=== PATIENT | female | born 1940 | race Caucasian/White ===

== ENCOUNTER 2018-02-08 17:28 | Emergency (ER) | payer MEDICAID ==
[~2018-02-08] VITALS: Ht 154.9 cm; Wt 75.0 kg
[~2018-02-08 17:28] MED LIST: ACET-2178 PO; ALEN70TA46 PO; AMLO10TA80 PO; ASPI-1159 PO; CEPH-569 PO; FURO-151 PO; HYDR25TA PO; IBUP-2030 PO; LOPE2TAB26 PO; LOSA100T14 PO; METF10002 PO; METO25TA6 PO; MULT-1146 PO; OCD MT; SIMV20TA6 PO
[2018-02-08 20:17] LABS: BASOPHILS % 0.5 % (0.0-2.0); EOSINOPHILS % 0.8 % (0.0-5.0); HEMATOCRIT. 32.3 % (36.0-48.0); HEMOGLOBIN. 10.8 g/dL (12.0-16.0); LYMPHOCYTES % 23.3 % (20.0-50.0); MEAN CORPUSCULAR HEMOGLOBIN 29.8 pg (28.0-32.0); MEAN CORPUSCULAR VOLUME 89.1 fL (81.0-99.0); MONOCYTES % 8.5 % (2.0-8.0); NEUTROPHILS % 66.9 % (40.0-76.0); PLATELET 225 x1000/uL (130-400); RED BLOOD CELL COUNT 3.62 mill/uL (4.2-5.4); RED CELL DISTRIBUTION WIDTH 13.9 % (11.6-14.6)
[2018-02-08 20:19] LABS: CHLORIDE 97 mEq/L (98-107)
[2018-02-08 20:21] LABS: PROTHROMBIN TIME 10.9 sec (9.4-11.6)
[2018-02-08] MEDS ORDERED: DIATR MEGLU/DIATRIZOATE SOLN 30ML ONE (20:58)
[2018-02-08 21:25] LABS: CLARITY URINE CLOUDY (CLEAR); COLOR URINE YELLOW (YELLOW); KETONES URINE NEGATIVE (NEGATIVE); LEUKOCYTE ESTERASE URINE 3+ (NEGATIVE); NITRITE URINE POSITIVE (NEGATIVE); OCCULT BLOOD URINE 1+ (NEGATIVE); PROTEIN URINE NEGATIVE (NEGATIVE); UROBILINOGEN URINE 0.2 E.U./dL (0.2-1.0)
[2018-02-09] MEDS ORDERED: CEFTRIAXONE 1 G PREMIX 50 ML IV NR (00:45)
[2018-02-09 05:54] VITALS: BP 138/66
[2018-02-09] MEDS ORDERED: IOHEXOL-300 100 ML BOTTLE ONE (06:59)
== END 2018-02-09 06:35 | disposition home or self-care (01) ==
LOC: ER 17:41
DX: N39.0 Urinary tract infection, site not specified (principal); K59.00 Constipation, unspecified; R11.2 Nausea with vomiting, unspecified; I50.9 Heart failure, unspecified; I11.0 Hypertensive heart disease with heart failure; E11.9 Type 2 diabetes mellitus without complications; I25.10 Atherosclerotic heart disease of native coronary artery without angina pectoris; E78.5 Hyperlipidemia, unspecified; K42.9 Umbilical hernia without obstruction or gangrene; Z89.511 Acquired absence of right leg below knee; Z95.1 Presence of aortocoronary bypass graft; Z79.82 Long term (current) use of aspirin; Z79.899 Other long term (current) drug therapy
CPT/HCPCS: 36415; 74177; 80053; 81003; 82962; 83690; 85025; 85610; 87077; 87086; 87186; 96365; 96366; 99285; J0696; Q9967; Z7610; Q9963

== ENCOUNTER 2019-02-22 18:45 | Inpatient (IN) | payer MEDICAID ==
[~2019-02-22] VITALS: Ht 152.4 cm; Wt 98.4 kg
[~2019-02-22 18:45] MED LIST changes: +METF-416 PO; -METF10002 PO; -OCD MT; +OCD PO; -SIMV20TA6 PO
[2019-02-22 20:06] LABS: HEMATOCRIT. 29.4 % (36.0-48.0); HEMOGLOBIN. 9.6 g/dL (12.0-16.0); MEAN CORPUSCULAR HEMOGLOBIN 30.1 pg (28.0-32.0); MEAN CORPUSCULAR VOLUME 92.6 fL (81.0-99.0); PLATELET 266 x1000/uL (130-400); RED BLOOD CELL COUNT 3.17 mill/uL (4.2-5.4); RED CELL DISTRIBUTION WIDTH 14.6 % (11.6-14.6)
[2019-02-22 20:11] LABS: CHLORIDE 95 mEq/L (98-107)
[2019-02-22] MEDS ORDERED: DEXTROSE 50% WATER 50ML SYRINGE IV ONE ×4 (20:14→23:00)
[2019-02-22 20:17] LABS: PROTHROMBIN TIME 10.4 sec (9.1-11.1)
[2019-02-22 20:28] LABS: PLATELET ESTIMATE NORMAL
[2019-02-22] MEDS ORDERED: DEXT 10% WATER 1,000 ML IV ONE (22:30)
[2019-02-22] MEDS ORDERED: FENTANYL CITRATE/PF 50MCG/ML 2ML VIAL IV ONE (23:00)
[2019-02-23 04:47] LABS: CLARITY URINE TURBID (CLEAR); COLOR URINE YELLOW (YELLOW); KETONES URINE NEGATIVE (NEGATIVE); LEUKOCYTE ESTERASE URINE 3+ (NEGATIVE); NITRITE URINE POSITIVE (NEGATIVE); OCCULT BLOOD URINE 3+ (NEGATIVE); PH URINE 5.5 (4.5-8.0); PROTEIN URINE TRACE (NEGATIVE); SPECIFIC GRAVITY URINE 1.009 (1.005-1.030); UROBILINOGEN URINE 0.2 E.U./dL (0.2-1.0)
[2019-02-23] MEDS ORDERED: MORPHINE SULFATE 4 MG/ML CPJ (NOT FOR IM USE) IV PRN (08:30)
[2019-02-23 11:00] VITALS: BP 115/47
[2019-02-23 11:10] VITALS: BP 115/47
[2019-02-23] MEDS ORDERED: CEFTRIAXONE 1 G PREMIX 50 ML IV SCH (12:00)
[2019-02-23] MEDS ORDERED: DEXTROSE 10% WATER 500 ML IV SCH (12:00)
[2019-02-23] MEDS ORDERED: ONDANSETRON HCL 4MG/2ML INJ IV PRN (12:00)
[2019-02-23] MEDS: CEFTRIAXONE 1 G PREMIX 50 ML IV SCH (15:13)
[2019-02-23 16:00] VITALS: BP 121/34
[2019-02-23] MEDS: DEXT 10% WATER 1,000 ML IV SCH (16:04)
[2019-02-23] MEDS: ACETAMINOPHEN WITH CODEINE 300/30MG TABLET PO PRN ×2 (16:20→21:27)
[2019-02-23] MEDS ORDERED: ENOXAPARIN 40MG/0.4ML SYR SUBCUT SCH (17:00)
[2019-02-23] MEDS: FUROSEMIDE 40MG/4ML VIAL IVP SCH (18:00)
[2019-02-23] MEDS ORDERED: DEXTROSE 50% WATER 50ML SYRINGE IV PRN (19:45)
[2019-02-23 20:00] VITALS: BP 128/42
[2019-02-23] MEDS: INSULIN LISPRO 100 UNITS/ML SUBCUT SCH (21:00)
[2019-02-23] MEDS: CARVEDILOL 3.125 MG TABLET PO SCH (21:27)
[2019-02-23] MEDS: BLOOD SUGAR DIAGNOSTIC STRIP TEST SCH (21:27)
[2019-02-24 00:34] VITALS: BP 115/42
[2019-02-24] MEDS: DEXT 10% WATER 1,000 ML IV SCH (01:35)
[2019-02-24] MEDS: ACETAMINOPHEN WITH CODEINE 300/30MG TABLET PO PRN ×2 (03:00→21:53)
[2019-02-24 04:00] VITALS: BP 133/40
[2019-02-24] MEDS ORDERED: ATOR40TA70 PO (04:41)
[2019-02-24] MEDS ORDERED: CALC-775 PO (04:41)
[2019-02-24] MEDS ORDERED: SERT25TA74 PO (05:45)
[2019-02-24] MEDS ORDERED: PRED10DR7 EACHEYE (05:45)
[2019-02-24] MEDS ORDERED: PIOG45TA5 PO (05:45)
[2019-02-24] MEDS ORDERED: LATA2.5D2 EACHEYE (05:45)
[2019-02-24] MEDS ORDERED: TIMO5DRO27 EACHEYE (05:45)
[2019-02-24] MEDS ORDERED: KETO5DRO37 EACHEYE (05:45)
[2019-02-24] MEDS: BLOOD SUGAR DIAGNOSTIC STRIP TEST SCH ×4 (07:40→21:53)
[2019-02-24 08:00] VITALS: BP 139/27
[2019-02-24] MEDS: INSULIN LISPRO 100 UNITS/ML SUBCUT SCH (08:10)
[2019-02-24] MEDS: CEFTRIAXONE 1 G PREMIX 50 ML IV SCH (09:35)
[2019-02-24] MEDS: CARVEDILOL 3.125 MG TABLET PO SCH ×2 (09:36→21:53)
[2019-02-24] MEDS: FUROSEMIDE 40MG/4ML VIAL IVP SCH (09:36)
[2019-02-24] MEDS: ASPIRIN 81MG TABLET PO SCH (09:37)
[2019-02-24 12:00] VITALS: BP 134/52
[2019-02-24 13:35] LABS: BASOPHILS % 0.6 % (0.0-2.0); EOSINOPHILS % 2.5 % (0.0-5.0); HEMATOCRIT. 28.4 % (36.0-48.0); HEMOGLOBIN. 9.3 g/dL (12.0-16.0); LYMPHOCYTES % 22.3 % (20.0-50.0); MEAN CORPUSCULAR VOLUME 92.1 fL (81.0-99.0); MEAN PLATELET VOLUME 9.4 fl (7.4-10.4); MONOCYTES % 11.7 % (2.0-8.0); NEUTROPHILS % 62.9 % (40.0-76.0); PLATELET 235 x1000/uL (130-400); RED BLOOD CELL COUNT 3.08 mill/uL (4.2-5.4); RED CELL DISTRIBUTION WIDTH 14.6 % (11.6-14.6)
[2019-02-24 16:00] VITALS: BP 124/59
[2019-02-24 20:00] VITALS: BP 118/32
[2019-02-24] MEDS: ENOXAPARIN 40MG/0.4ML SYR SUBCUT SCH (21:56)
[2019-02-25] VITALS: BP 112/37
[2019-02-25 04:00] VITALS: BP 116/40
[2019-02-25] MEDS: BLOOD SUGAR DIAGNOSTIC STRIP TEST SCH ×4 (06:06→20:14)
[2019-02-25 07:17] LABS: BASOPHILS % 0.7 % (0.0-2.0); EOSINOPHILS % 2.6 % (0.0-5.0); HEMATOCRIT. 26.7 % (36.0-48.0); HEMOGLOBIN. 9.1 g/dL (12.0-16.0); LYMPHOCYTES % 24.2 % (20.0-50.0); MEAN CORPUSCULAR HEMOGLOBIN 31.2 pg (28.0-32.0); MEAN CORPUSCULAR VOLUME 91.3 fL (81.0-99.0); MEAN PLATELET VOLUME 9.6 fl (7.4-10.4); MONOCYTES % 14.7 % (2.0-8.0); NEUTROPHILS % 57.8 % (40.0-76.0); PLATELET 222 x1000/uL (130-400); RED BLOOD CELL COUNT 2.92 mill/uL (4.2-5.4); RED CELL DISTRIBUTION WIDTH 14.1 % (11.6-14.6)
[2019-02-25 07:53] LABS: CHLORIDE 92 mEq/L (98-107)
[2019-02-25 08:00] VITALS: BP 127/42
[2019-02-25] MEDS: ASPIRIN 81MG TABLET PO SCH (09:42)
[2019-02-25] MEDS: CARVEDILOL 3.125 MG TABLET PO SCH ×2 (09:43→22:02)
[2019-02-25] MEDS: ENOXAPARIN 40MG/0.4ML SYR SUBCUT SCH ×2 (09:43→20:19)
[2019-02-25] MEDS: FUROSEMIDE 40MG/4ML VIAL IVP SCH (09:43)
[2019-02-25] MEDS: CEFTRIAXONE 1 G PREMIX 50 ML IV SCH (09:44)
[2019-02-25 12:00] VITALS: BP 118/77
[2019-02-25] MEDS ORDERED: DEXTROSE 50% WATER 50ML SYRINGE IV PRN (12:15)
[2019-02-25] MEDS: INSULIN LISPRO 100 UNITS/ML SUBCUT SCH ×3 (13:53→20:14)
[2019-02-25 16:00] VITALS: BP 124/42
[2019-02-25] MEDS: ACETAMINOPHEN WITH CODEINE 300/30MG TABLET PO PRN ×2 (16:07→20:19)
[2019-02-25] MEDS: MEROPENEM 1,000 MG in SODIUM CHLORIDE 0.9% 100 ML IV SCH (18:20)
[2019-02-25 20:00] VITALS: BP 116/60
[2019-02-26] VITALS: BP 120/40
[2019-02-26 04:00] VITALS: BP 120/45
[2019-02-26] MEDS: MEROPENEM 1,000 MG in SODIUM CHLORIDE 0.9% 100 ML IV SCH ×3 (05:18→23:00)
[2019-02-26] MEDS: INSULIN LISPRO 100 UNITS/ML SUBCUT SCH ×4 (07:31→21:58)
[2019-02-26] MEDS: BLOOD SUGAR DIAGNOSTIC STRIP TEST SCH ×4 (07:31→21:59)
[2019-02-26 08:00] VITALS: BP 130/40
[2019-02-26] MEDS: FUROSEMIDE 40MG/4ML VIAL IVP SCH (09:51)
[2019-02-26] MEDS: ENOXAPARIN 40MG/0.4ML SYR SUBCUT SCH ×2 (09:51→21:57)
[2019-02-26] MEDS: ASPIRIN 81MG TABLET PO SCH (09:51)
[2019-02-26] MEDS: CARVEDILOL 3.125 MG TABLET PO SCH ×2 (09:51→21:56)
[2019-02-26 12:00] VITALS: BP 126/61
[2019-02-26] MEDS: DOCUSATE SODIUM 250MG CAPSULE PO SCH ×2 (12:46→15:18)
[2019-02-26] MEDS ORDERED: LACTULOSE 20G/30ML UDC PO NR (14:00)
[2019-02-26] MEDS: ACETAMINOPHEN 325MG TABLET PO PRN (15:17)
[2019-02-26 16:00] VITALS: BP 140/46
[2019-02-26 20:00] VITALS: BP 111/72
[2019-02-27] VITALS: BP 150/70
[2019-02-27 04:00] VITALS: BP 132/68
[2019-02-27] MEDS: BLOOD SUGAR DIAGNOSTIC STRIP TEST SCH ×4 (05:40→21:00)
[2019-02-27] MEDS: MEROPENEM 1,000 MG in SODIUM CHLORIDE 0.9% 100 ML IV SCH ×3 (06:07→22:11)
[2019-02-27 07:27] LABS: BASOPHILS % 0.7 % (0.0-2.0); EOSINOPHILS % 3.5 % (0.0-5.0); HEMATOCRIT. 28.7 % (36.0-48.0); HEMOGLOBIN. 9.5 g/dL (12.0-16.0); LYMPHOCYTES % 29.9 % (20.0-50.0); MEAN CORPUSCULAR HEMOGLOBIN 30.6 pg (28.0-32.0); MEAN PLATELET VOLUME 9.1 fl (7.4-10.4); MONOCYTES % 13.9 % (2.0-8.0); PLATELET 248 x1000/uL (130-400); RED BLOOD CELL COUNT 3.12 mill/uL (4.2-5.4); RED CELL DISTRIBUTION WIDTH 14.3 % (11.6-14.6)
[2019-02-27 07:49] LABS: CHLORIDE 97 mEq/L (98-107)
[2019-02-27 08:00] VITALS: BP 128/50
[2019-02-27] MEDS: INSULIN LISPRO 100 UNITS/ML SUBCUT SCH ×4 (08:10→22:11)
[2019-02-27] MEDS: ENOXAPARIN 40MG/0.4ML SYR SUBCUT SCH ×2 (08:58→22:10)
[2019-02-27] MEDS: FUROSEMIDE 40MG/4ML VIAL IVP SCH (08:58)
[2019-02-27] MEDS: DOCUSATE SODIUM 250MG CAPSULE PO SCH ×2 (08:59→17:25)
[2019-02-27] MEDS: CARVEDILOL 3.125 MG TABLET PO SCH ×2 (09:03→20:21)
[2019-02-27 12:00] VITALS: BP 142/49
[2019-02-27] MEDS ORDERED: IPRATROPIUM/ALBUTEROL 0.5-3(2.5)MG/3ML NEB HHN PRN (15:15)
[2019-02-27 16:00] VITALS: BP 130/48
[2019-02-27 16:00] LABS: BG BASE EXCESS 8.9 mmol/L (-2.0-2.0); BG CARBOXYHEMOGLOBIN 0.3 % (0.5-1.5); BG DEOXYHEMOGLOBIN 6.2 % (0.0-5.0); BG FRACTION INSPIRED OXYGEN 21; BG HCO3 ACT 33.7 mmol/L (22.0-26.0); BG METHEMOGLOBIN 0.1 % (0.0-1.5); BG OXYGEN SATURATION 93.8 % (92.0-98.5); BG OXYHEMOGLOBIN 93.4 % (94.0-97.0); BG PCO2 47.3 mmHg (35.0-45.0); BG PO2 68.9 mmHg (75.0-100.0); BG SAMPLE SITE RIGHT BRACHIAL; BG TOTAL HEMOGLOBIN 10.4 g/dL (12.0-18.0); BG VENT MODE ROOM AIR
[2019-02-27] MEDS: ACETAMINOPHEN 325MG TABLET PO PRN (18:57)
[2019-02-27 20:00] VITALS: BP 94/36
[2019-02-28] VITALS: BP 130/32
[2019-02-28 04:00] VITALS: BP 133/35
[2019-02-28] MEDS: MEROPENEM 1,000 MG in SODIUM CHLORIDE 0.9% 100 ML IV SCH ×2 (06:08→14:05)
[2019-02-28] MEDS: ACETAMINOPHEN 325MG TABLET PO PRN (06:08)
[2019-02-28] MEDS: BLOOD SUGAR DIAGNOSTIC STRIP TEST SCH ×4 (06:08→21:00)
[2019-02-28 07:09] LABS: BASOPHILS % 0.6 % (0.0-2.0); EOSINOPHILS % 4.5 % (0.0-5.0); HEMATOCRIT. 30.9 % (36.0-48.0); HEMOGLOBIN. 10.2 g/dL (12.0-16.0); LYMPHOCYTES % 29.1 % (20.0-50.0); MEAN CORPUSCULAR HEMOGLOBIN 30.2 pg (28.0-32.0); MEAN PLATELET VOLUME 9.3 fl (7.4-10.4); MONOCYTES % 14.6 % (2.0-8.0); NEUTROPHILS % 51.2 % (40.0-76.0); PLATELET 266 x1000/uL (130-400); RED BLOOD CELL COUNT 3.36 mill/uL (4.2-5.4); RED CELL DISTRIBUTION WIDTH 14.4 % (11.6-14.6)
[2019-02-28 07:46] LABS: CHLORIDE 97 mEq/L (98-107)
[2019-02-28] MEDS: INSULIN LISPRO 100 UNITS/ML SUBCUT SCH ×4 (07:58→21:00)
[2019-02-28 08:00] VITALS: BP 107/40
[2019-02-28] MEDS: CARVEDILOL 3.125 MG TABLET PO SCH ×2 (09:00→21:08)
[2019-02-28] MEDS: DOCUSATE SODIUM 250MG CAPSULE PO SCH ×2 (09:00→18:44)
[2019-02-28] MEDS: AMLODIPINE 5MG TABLET PO SCH (09:00)
[2019-02-28] MEDS: FUROSEMIDE 40MG/4ML VIAL IVP SCH (10:25)
[2019-02-28] MEDS: ACETAMINOPHEN WITH CODEINE 300/30MG TABLET PO PRN (10:26)
[2019-02-28 12:00] VITALS: BP 129/50
[2019-02-28 16:00] VITALS: BP 120/84
[2019-02-28 20:00] VITALS: BP 128/40
[2019-03-01] VITALS: BP 115/42
[2019-03-01] MEDS: MEROPENEM 1,000 MG in SODIUM CHLORIDE 0.9% 100 ML IV SCH ×2 (00:07→06:03)
[2019-03-01] MEDS: ACETAMINOPHEN 325MG TABLET PO PRN (00:07)
[2019-03-01 04:00] VITALS: BP 119/46
[2019-03-01] MEDS: BLOOD SUGAR DIAGNOSTIC STRIP TEST SCH ×3 (06:03→21:00)
[2019-03-01 06:23] LABS: BASOPHILS % 0.9 % (0.0-2.0); EOSINOPHILS % 3.4 % (0.0-5.0); HEMATOCRIT. 34.5 % (36.0-48.0); HEMOGLOBIN. 11.1 g/dL (12.0-16.0); LYMPHOCYTES % 33.9 % (20.0-50.0); MEAN CORPUSCULAR HEMOGLOBIN 30.4 pg (28.0-32.0); MEAN CORPUSCULAR VOLUME 94.3 fL (81.0-99.0); MEAN PLATELET VOLUME 9.1 fl (7.4-10.4); MONOCYTES % 13.6 % (2.0-8.0); NEUTROPHILS % 48.2 % (40.0-76.0); PLATELET 260 x1000/uL (130-400); RED BLOOD CELL COUNT 3.66 mill/uL (4.2-5.4); RED CELL DISTRIBUTION WIDTH 14.5 % (11.6-14.6)
[2019-03-01 06:39] LABS: CHLORIDE 100 mEq/L (98-107)
[2019-03-01] MEDS: INSULIN LISPRO 100 UNITS/ML SUBCUT SCH ×3 (07:41→21:00)
[2019-03-01 08:00] VITALS: BP_SYST 112; BP_SYST 138; BP_DIAS 40; BP_DIAS 49
[2019-03-01] MEDS: FUROSEMIDE 40MG/4ML VIAL IVP SCH (08:30)
[2019-03-01] MEDS: CARVEDILOL 3.125 MG TABLET PO SCH ×2 (08:31→21:00)
[2019-03-01] MEDS: DOCUSATE SODIUM 250MG CAPSULE PO SCH (08:31)
[2019-03-01] MEDS: AMLODIPINE 5MG TABLET PO SCH (08:31)
[2019-03-01 08:44] LABS: INR 1.1
[2019-03-01] MEDS: DEXT 5%/0.45% NACL 1000ML 1,000 ML IV SCH ×2 (10:57→22:18)
[2019-03-01 12:00] VITALS: BP 138/40
[2019-03-01] MEDS ORDERED: THROMBIN (BOVINE) 5000 UNITS/VIAL TOP ONE ×2 (12:35→12:36)
[2019-03-01] MEDS ORDERED: NORMAL SALINE 0.9% 10 ML SYR ONE (12:35)
[2019-03-01] MEDS ORDERED: LIDOCAINE HCL/EPINEPHRINE 1%-EPI 1:100,000 20 ML VIAL ONE (12:36)
[2019-03-01] MEDS ORDERED: BACITRACIN 50,000 UNITS/VIAL ONE (12:37)
[2019-03-01] MEDS ORDERED: FENTANYL CITRATE/PF 50MCG/ML 2ML VIAL ONE (12:42)
[2019-03-01] MEDS ORDERED: PROPOFOL 200MG/20ML VIAL IV ONE (12:42)
[2019-03-01] MEDS ORDERED: ROCURONIUM BROMIDE 10MG/ML VIAL 5ML IV ONE ×2 (13:04→14:24)
[2019-03-01] MEDS ORDERED: GLYCOPYRROLATE 0.2 MG/ML 2ML VIAL ONE ×3 (14:17→15:20)
[2019-03-01] MEDS ORDERED: ONDANSETRON HCL 4MG/2ML INJ IV PRN (14:45)
[2019-03-01] MEDS ORDERED: LABETALOL 5MG/ML SYR 20 MG/4 ML SYRINGE IV PRN (14:45)
[2019-03-01] MEDS ORDERED: HYDROMORPHONE HCL/PF 2MG/ML CPJ IV PRN (14:45)
[2019-03-01] MEDS ORDERED: MEPERIDINE HCL/PF 25MG/ML CPJ IV PRN (14:45)
[2019-03-01] MEDS ORDERED: CLONIDINE 0.1MG TABLET PO PRN (15:00)
[2019-03-01] MEDS ORDERED: NEOSTIGMINE METHYLSULFATE 1MG/ML 10 ML VIAL ONE (15:08)
[2019-03-01] MEDS ORDERED: ONDANSETRON INJ IV PRN (18:15)
[2019-03-01] MEDS ORDERED: HYDROMORPHONE PCA 10MG/50ML IV PRN (18:15)
[2019-03-01] MEDS ORDERED: NALOXONE INJ IV PRN (18:15)
[2019-03-01] MEDS ORDERED: DIPHENHYDRAMINE INJ IV PRN (18:15)
[2019-03-01 20:00] VITALS: BP 116/36
[2019-03-01] MEDS ORDERED: CEFAZOLIN SODIUM 1000MG/VIAL IV SCH (22:00)
[2019-03-01] MEDS: CEFAZOLIN 1000MG PREMIX 50 ML IV SCH (22:33)
[2019-03-02] VITALS: BP 115/41
[2019-03-02 04:00] VITALS: BP 110/35
[2019-03-02] MEDS: CEFAZOLIN 1000MG PREMIX 50 ML IV SCH ×3 (06:40→22:29)
[2019-03-02] MEDS: BLOOD SUGAR DIAGNOSTIC STRIP TEST SCH ×4 (06:40→21:08)
[2019-03-02] MEDS: DEXT 5%/0.45% NACL 1000ML 1,000 ML IV SCH ×2 (06:40→15:08)
[2019-03-02 08:00] VITALS: BP 124/44
[2019-03-02] MEDS: AMLODIPINE 5MG TABLET PO SCH (08:35)
[2019-03-02] MEDS: FUROSEMIDE 40MG/4ML VIAL IVP SCH (08:35)
[2019-03-02] MEDS: DOCUSATE SODIUM 250MG CAPSULE PO SCH ×2 (08:35→17:51)
[2019-03-02] MEDS: CARVEDILOL 3.125 MG TABLET PO SCH ×2 (09:00→21:25)
[2019-03-02] MEDS: INSULIN LISPRO 100 UNITS/ML SUBCUT SCH ×4 (09:45→21:00)
[2019-03-02 12:00] VITALS: BP 116/29
[2019-03-02] MEDS: MEROPENEM 1,000 MG in SODIUM CHLORIDE 0.9% 100 ML IV SCH ×2 (15:08→23:36)
[2019-03-02 16:00] VITALS: BP 118/32
[2019-03-02 20:00] VITALS: BP 137/40
[2019-03-02] MEDS ORDERED: COR3 PO (22:27)
[2019-03-02] MEDS ORDERED: MERO500P IV (22:29)
[2019-03-03] VITALS: BP 127/54
[2019-03-03 04:00] VITALS: BP 120/37
[2019-03-03] MEDS: MEROPENEM 1,000 MG in SODIUM CHLORIDE 0.9% 100 ML IV SCH ×3 (06:22→23:19)
[2019-03-03] MEDS: BLOOD SUGAR DIAGNOSTIC STRIP TEST SCH ×4 (06:26→21:11)
[2019-03-03 06:59] LABS: BASOPHILS % 0.9 % (0.0-2.0); EOSINOPHILS % 2.2 % (0.0-5.0); HEMATOCRIT. 27.3 % (36.0-48.0); HEMOGLOBIN. 9.1 g/dL (12.0-16.0); LYMPHOCYTES % 17.1 % (20.0-50.0); MEAN CORPUSCULAR HEMOGLOBIN 30.8 pg (28.0-32.0); MEAN CORPUSCULAR VOLUME 92.1 fL (81.0-99.0); MEAN PLATELET VOLUME 9.3 fl (7.4-10.4); MONOCYTES % 13.2 % (2.0-8.0); NEUTROPHILS % 66.6 % (40.0-76.0); PLATELET 203 x1000/uL (130-400); RED BLOOD CELL COUNT 2.97 mill/uL (4.2-5.4); RED CELL DISTRIBUTION WIDTH 14.3 % (11.6-14.6)
[2019-03-03 08:00] VITALS: BP 116/46
[2019-03-03] MEDS: AMLODIPINE 5MG TABLET PO SCH (09:00)
[2019-03-03] MEDS: CARVEDILOL 3.125 MG TABLET PO SCH ×2 (09:00→21:00)
[2019-03-03] MEDS: DOCUSATE SODIUM 250MG CAPSULE PO SCH ×2 (09:10→16:12)
[2019-03-03] MEDS: FUROSEMIDE 40MG/4ML VIAL IVP SCH (09:10)
[2019-03-03] MEDS: ACETAMINOPHEN 325MG TABLET PO PRN ×2 (09:16→20:29)
[2019-03-03] MEDS: INSULIN LISPRO 100 UNITS/ML SUBCUT SCH ×4 (09:25→21:20)
[2019-03-03 09:56] LABS: CHLORIDE 97 mEq/L (98-107)
[2019-03-03 12:00] VITALS: BP 121/43
[2019-03-03 16:00] VITALS: BP 120/38
[2019-03-03 20:00] VITALS: BP 108/58
[2019-03-04] VITALS: BP 106/55
[2019-03-04 04:00] VITALS: BP 123/38
[2019-03-04] MEDS: MEROPENEM 1,000 MG in SODIUM CHLORIDE 0.9% 100 ML IV SCH ×3 (05:59→22:37)
[2019-03-04] MEDS: ACETAMINOPHEN 325MG TABLET PO PRN (06:11)
[2019-03-04] MEDS: BLOOD SUGAR DIAGNOSTIC STRIP TEST SCH ×4 (06:13→20:44)
[2019-03-04] MEDS: INSULIN LISPRO 100 UNITS/ML SUBCUT SCH ×4 (06:30→20:43)
[2019-03-04 08:00] VITALS: BP 108/50
[2019-03-04] MEDS: DOCUSATE SODIUM 250MG CAPSULE PO SCH ×2 (08:55→18:32)
[2019-03-04] MEDS: FUROSEMIDE 40MG/4ML VIAL IVP SCH (08:55)
[2019-03-04] MEDS: AMLODIPINE 5MG TABLET PO SCH (09:00)
[2019-03-04] MEDS: CARVEDILOL 3.125 MG TABLET PO SCH ×2 (09:00→20:36)
[2019-03-04 12:00] VITALS: BP 96/52
[2019-03-04 16:00] VITALS: BP 150/41
[2019-03-04 20:00] VITALS: BP 137/43
[2019-03-05] VITALS: BP 102/80
[2019-03-05] MEDS: HYDROCODONE/ACETAMINOPHEN 5/325MG TABLET PO PRN ×4 (00:47→23:04)
[2019-03-05 04:00] VITALS: BP 106/72
[2019-03-05] MEDS: BLOOD SUGAR DIAGNOSTIC STRIP TEST SCH ×4 (07:42→21:00)
[2019-03-05] MEDS: INSULIN LISPRO 100 UNITS/ML SUBCUT SCH ×4 (07:50→21:55)
[2019-03-05 08:00] VITALS: BP 112/62
[2019-03-05] MEDS: AMLODIPINE 5MG TABLET PO SCH (09:00)
[2019-03-05] MEDS: CARVEDILOL 3.125 MG TABLET PO SCH ×2 (09:00→21:36)
[2019-03-05] MEDS: FUROSEMIDE 40MG/4ML VIAL IVP SCH (09:09)
[2019-03-05] MEDS: DOCUSATE SODIUM 250MG CAPSULE PO SCH ×2 (09:10→17:00)
[2019-03-05 12:00] VITALS: BP 134/60
[2019-03-05 16:00] VITALS: BP 143/56
[2019-03-05 20:00] VITALS: BP 140/44
[2019-03-06] VITALS: BP 125/46
[2019-03-06 04:00] VITALS: BP 131/66
[2019-03-06] MEDS: BLOOD SUGAR DIAGNOSTIC STRIP TEST SCH ×4 (06:47→21:00)
[2019-03-06] MEDS: INSULIN LISPRO 100 UNITS/ML SUBCUT SCH ×4 (07:33→22:27)
[2019-03-06 08:00] VITALS: BP 146/42
[2019-03-06] MEDS: FUROSEMIDE 40MG/4ML VIAL IVP SCH (08:45)
[2019-03-06] MEDS: CARVEDILOL 3.125 MG TABLET PO SCH ×2 (08:46→21:22)
[2019-03-06] MEDS: AMLODIPINE 5MG TABLET PO SCH (08:46)
[2019-03-06] MEDS: DOCUSATE SODIUM 250MG CAPSULE PO SCH ×2 (08:46→17:00)
[2019-03-06 12:00] VITALS: BP 146/30
[2019-03-06] MEDS: HYDROCODONE/ACETAMINOPHEN 5/325MG TABLET PO PRN ×2 (13:56→22:21)
[2019-03-06 16:00] VITALS: BP 126/36
[2019-03-06 20:00] VITALS: BP 123/45
[2019-03-07] VITALS (7 sets, daily range): BP systolic 107–151; BP diastolic 32–56
[2019-03-07] MEDS: INSULIN LISPRO 100 UNITS/ML SUBCUT SCH ×4 (06:53→21:00)
[2019-03-07] MEDS: BLOOD SUGAR DIAGNOSTIC STRIP TEST SCH ×4 (06:56→21:00)
[2019-03-07] MEDS: CARVEDILOL 3.125 MG TABLET PO SCH ×2 (08:26→20:54)
[2019-03-07] MEDS: AMLODIPINE 5MG TABLET PO SCH (08:27)
[2019-03-07] MEDS: DOCUSATE SODIUM 250MG CAPSULE PO SCH ×2 (09:32→16:53)
[2019-03-07] MEDS: FUROSEMIDE 40MG/4ML VIAL IVP SCH (09:32)
[2019-03-07] MEDS: HYDROCODONE/ACETAMINOPHEN 5/325MG TABLET PO PRN ×2 (09:33→20:55)
[2019-03-08] VITALS: BP 132/33
[2019-03-08 04:00] VITALS: BP 134/77
[2019-03-08] MEDS: BLOOD SUGAR DIAGNOSTIC STRIP TEST SCH ×4 (06:34→20:16)
[2019-03-08 08:00] VITALS: BP 133/61
[2019-03-08] MEDS: DOCUSATE SODIUM 250MG CAPSULE PO SCH ×2 (08:22→16:26)
[2019-03-08] MEDS: AMLODIPINE 5MG TABLET PO SCH (08:23)
[2019-03-08] MEDS: CARVEDILOL 3.125 MG TABLET PO SCH ×2 (08:23→20:16)
[2019-03-08] MEDS: FUROSEMIDE 40MG/4ML VIAL IVP SCH (08:24)
[2019-03-08] MEDS: INSULIN LISPRO 100 UNITS/ML SUBCUT SCH ×4 (08:26→20:47)
[2019-03-08 09:37] LABS: EOSINOPHILS % 3.7 % (0.0-5.0); HEMATOCRIT. 30.6 % (36.0-48.0); HEMOGLOBIN. 10.2 g/dL (12.0-16.0); LYMPHOCYTES % 25.5 % (20.0-50.0); MEAN CORPUSCULAR HEMOGLOBIN 30.2 pg (28.0-32.0); MEAN CORPUSCULAR VOLUME 90.6 fL (81.0-99.0); MEAN PLATELET VOLUME 9.8 fl (7.4-10.4); MONOCYTES % 9.4 % (2.0-8.0); NEUTROPHILS % 60.4 % (40.0-76.0); PLATELET 292 x1000/uL (130-400); RED BLOOD CELL COUNT 3.38 mill/uL (4.2-5.4); RED CELL DISTRIBUTION WIDTH 13.7 % (11.6-14.6)
[2019-03-08 09:44] LABS: CHLORIDE 92 mEq/L (98-107)
[2019-03-08] MEDS: HYDROCODONE/ACETAMINOPHEN 5/325MG TABLET PO PRN (11:26)
[2019-03-08 12:00] VITALS: BP 125/51
[2019-03-08 16:00] VITALS: BP 121/34
[2019-03-08 20:00] VITALS: BP 134/48
[2019-03-08] MEDS: ACETAMINOPHEN 325MG TABLET PO PRN (22:59)
[2019-03-09] VITALS: BP 114/82
[2019-03-09 04:00] VITALS: BP 131/45
[2019-03-09] MEDS: BLOOD SUGAR DIAGNOSTIC STRIP TEST SCH ×2 (07:56→12:13)
[2019-03-09 08:00] VITALS: BP 131/45
[2019-03-09] MEDS: CARVEDILOL 3.125 MG TABLET PO SCH (08:18)
[2019-03-09] MEDS: AMLODIPINE 5MG TABLET PO SCH (08:19)
[2019-03-09] MEDS: DOCUSATE SODIUM 250MG CAPSULE PO SCH (08:50)
[2019-03-09] MEDS: INSULIN LISPRO 100 UNITS/ML SUBCUT SCH ×2 (08:55→13:34)
[2019-03-09] MEDS: FUROSEMIDE 40MG/4ML VIAL IVP SCH (09:13)
[2019-03-09 12:00] VITALS: BP 132/43
[2019-03-09 13:41] VITALS: BP 132/43
== END 2019-03-09 14:06 | DRG 710 ==
LOC: ER 18:45 → 7WST 22:48 → ENRESERV 02-23 10:06 → 6EST 03-01 14:08
PROVIDERS: ADMIT Internal Medicine; ATTEND Internal Medicine
PROC: 0SG0071 Fusion of Lumbar Vertebral Joint with Autologous Tissue Substitute, Posterior Approach, Posterior Column, Open Approach (ICD-10-PCS; principal; 2019-03-01)
PROC: 01NB0ZZ Release Lumbar Nerve, Open Approach (ICD-10-PCS; 2019-03-01)
DX: A41.51 Sepsis due to Escherichia coli [E. coli] (principal); J96.00 Acute respiratory failure, unspecified whether with hypoxia or hypercapnia; I47.2 Ventricular tachycardia; I50.23 Acute on chronic systolic (congestive) heart failure; E44.0 Moderate protein-calorie malnutrition; E11.51 Type 2 diabetes mellitus with diabetic peripheral angiopathy without gangrene; G82.20 Paraplegia, unspecified; M48.54XA Collapsed vertebra, not elsewhere classified, thoracic region, initial encounter for fracture; M47.26 Other spondylosis with radiculopathy, lumbar region; M48.061 Spinal stenosis, lumbar region without neurogenic claudication; E11.649 Type 2 diabetes mellitus with hypoglycemia without coma; E87.1 Hypo-osmolality and hyponatremia; E87.8 Other disorders of electrolyte and fluid balance, not elsewhere classified; E78.00 Pure hypercholesterolemia, unspecified; I42.9 Cardiomyopathy, unspecified; E78.5 Hyperlipidemia, unspecified; N39.0 Urinary tract infection, site not specified; H40.9 Unspecified glaucoma; I27.29 Other secondary pulmonary hypertension; M19.90 Unspecified osteoarthritis, unspecified site; I11.0 Hypertensive heart disease with heart failure; E11.65 Type 2 diabetes mellitus with hyperglycemia; F41.9 Anxiety disorder, unspecified; I25.10 Atherosclerotic heart disease of native coronary artery without angina pectoris; I49.3 Ventricular premature depolarization; Z16.12 Extended spectrum beta lactamase (ESBL) resistance; Z89.511 Acquired absence of right leg below knee; Z95.1 Presence of aortocoronary bypass graft; Z90.49 Acquired absence of other specified parts of digestive tract; I25.2 Old myocardial infarction; Z71.3 Dietary counseling and surveillance
CPT/HCPCS: 36415; 36600; 71045; 72128; 72146; 72148; 80048; 82375; 82805; 82962; 83036; 83735; 84484; 86850; 86900; 86920; 87077; 87186; 93005; 93306; 96365; 96375; 97116; 97162; 97164; 97530; 97760; 99285; A6261; C1713; C1893; J0690; J0696; J1170; J1650; J1815; J1940; J2175; J2185; J2270; J2405; J2704; J2710; J3010; J3490; J7040; J7050; A4315

== ENCOUNTER 2019-03-15 10:16 | Inpatient (IN) | payer MEDICAID ==
[~2019-03-15] VITALS: Ht 152.4 cm; Wt 95.9 kg
[~2019-03-15 10:16] MED LIST changes: +ATOR40TA70 PO; +CALC-775 PO; -CEPH-569 PO; +COR3 PO; -HYDR25TA PO; -IBUP-2030 PO; +LATA2.5D2 EACHEYE; -LOPE2TAB26 PO; -LOSA100T14 PO; +MERO500P IV; -METO25TA6 PO; -OCD PO; +PIOG45TA5 PO; +PRED10DR7 EACHEYE; +SERT25TA74 PO; +TIMO5DRO27 EACHEYE
[2019-03-15] MEDS ORDERED: SODIUM CHLORIDE 0.9% 1000ML BAG (SEPSIS BOLUS) IV ONE (11:00)
[2019-03-15] MEDS ORDERED: VANCOMYCIN 1 G PREMIX 200 ML IV ONE (11:00)
[2019-03-15] MEDS ORDERED: PIPERACILLIN/TAZ 3.375G PREMIX 50 ML IV ONE (11:00)
[2019-03-15] MEDS ORDERED: GADOBENATE DIMEGLUMINE 529 MG/ML 10ML IV ONE (11:41)
[2019-03-15 11:43] LABS: CHLORIDE 101 mEq/L (98-107)
[2019-03-15 11:44] LABS: BASOPHILS % 0.8 % (0.0-2.0); EOSINOPHILS % 1.8 % (0.0-5.0); HEMATOCRIT. 37.6 % (36.0-48.0); HEMOGLOBIN. 12.3 g/dL (12.0-16.0); MEAN CORPUSCULAR HEMOGLOBIN 29.9 pg (28.0-32.0); MEAN CORPUSCULAR VOLUME 91.3 fL (81.0-99.0); MEAN PLATELET VOLUME 9.4 fl (7.4-10.4); MONOCYTES % 7.1 % (2.0-8.0); NEUTROPHILS % 63.3 % (40.0-76.0); PLATELET 431 x1000/uL (130-400); RED BLOOD CELL COUNT 4.11 mill/uL (4.2-5.4); RED CELL DISTRIBUTION WIDTH 14.4 % (11.6-14.6)
[2019-03-15 12:02] LABS: PROTHROMBIN TIME 10.7 sec (9.6-11.0)
[2019-03-15 13:14] LABS: CLARITY URINE CLEAR (CLEAR); COLOR URINE YELLOW (YELLOW); KETONES URINE NEGATIVE (NEGATIVE); LEUKOCYTE ESTERASE URINE 2+ (NEGATIVE); NITRITE URINE NEGATIVE (NEGATIVE); OCCULT BLOOD URINE TRACE (NEGATIVE); PROTEIN URINE NEGATIVE (NEGATIVE); SPECIFIC GRAVITY URINE 1.009 (1.005-1.030); UROBILINOGEN URINE 0.2 E.U./dL (0.2-1.0)
[2019-03-15] MEDS ORDERED: IPRATROPIUM/ALBUTEROL 0.5-3(2.5)MG/3ML NEB HHN PRN (16:00)
[2019-03-15] MEDS ORDERED: PIPERACILLIN/TAZ 3.375G PREMIX 50 ML IV SCH (16:00)
[2019-03-15 16:15] VITALS: BP 147/46
[2019-03-15] MEDS ORDERED: ONDANSETRON HCL 4MG/2ML INJ IV PRN ×3 (16:15→21:00)
[2019-03-15] MEDS ORDERED: GUAIFENESIN 200MG/10ML SUGAR FREE UDC PO PRN (16:15)
[2019-03-15] MEDS ORDERED: MAGNESIUM/ALUMINUM HYDROXIDE/SIMETHICONE 30ML UDC PO PRN (16:15)
[2019-03-15] MEDS ORDERED: ACETAMINOPHEN 325MG TABLET PO PRN (16:15)
[2019-03-15] MEDS ORDERED: CLONIDINE 0.1MG TABLET PO PRN (16:15)
[2019-03-15 17:23] VITALS: BP 147/46
[2019-03-15] MEDS ORDERED: DEXTROSE 50% WATER 50ML SYRINGE IV PRN (19:00)
[2019-03-15 20:00] VITALS: BP 135/81
[2019-03-15] MEDS ORDERED: MORPHINE SULFATE 4 MG/ML CPJ (NOT FOR IM USE) IV PRN (20:45)
[2019-03-15] MEDS: BLOOD SUGAR DIAGNOSTIC STRIP TEST SCH (21:00)
[2019-03-15] MEDS: VANCOMYCIN 1 G PREMIX 200 ML IV SCH (22:40)
[2019-03-15] MEDS: INSULIN LISPRO 100 UNITS/ML SUBCUT SCH (22:40)
[2019-03-16] VITALS: BP 132/35
[2019-03-16] MEDS: PIPERACILLIN/TAZ 2.25G PREMIX 50 ML IV SCH ×4 (00:16→18:40)
[2019-03-16 04:00] VITALS: BP 141/91
[2019-03-16] MEDS ORDERED: BACITRACIN 50,000 UNITS/VIAL ONE (05:52)
[2019-03-16] MEDS ORDERED: LIDOCAINE HCL/EPINEPHRINE 1%-EPI 1:100,000 20 ML VIAL ONE ×2 (05:52→07:51)
[2019-03-16] MEDS ORDERED: THROMBIN (BOVINE) 5000 UNITS/VIAL TOP ONE (05:52)
[2019-03-16] MEDS: INSULIN LISPRO 100 UNITS/ML SUBCUT SCH ×5 (06:22→21:12)
[2019-03-16] MEDS: BLOOD SUGAR DIAGNOSTIC STRIP TEST SCH ×4 (06:25→21:08)
[2019-03-16] MEDS ORDERED: HYDROMORPHONE HCL/PF 2MG/ML (OR) ONE (06:30)
[2019-03-16] MEDS ORDERED: MIDAZOLAM HCL 2 MG/2 ML VIAL ONE (06:31)
[2019-03-16] MEDS ORDERED: ROCURONIUM BROMIDE 10MG/ML VIAL 5ML IV ONE (06:31)
[2019-03-16] MEDS ORDERED: PROPOFOL 200MG/20ML VIAL IV ONE (06:31)
[2019-03-16] MEDS ORDERED: FENTANYL CITRATE/PF 50MCG/ML 5ML VIAL ONE (06:31)
[2019-03-16 07:00] LABS: BASOPHILS % 0.9 % (0.0-2.0); EOSINOPHILS % 1.9 % (0.0-5.0); HEMATOCRIT. 31.7 % (36.0-48.0); HEMOGLOBIN. 10.3 g/dL (12.0-16.0); LYMPHOCYTES % 31.9 % (20.0-50.0); MEAN CORPUSCULAR HEMOGLOBIN 29.4 pg (28.0-32.0); MEAN CORPUSCULAR VOLUME 90.4 fL (81.0-99.0); MEAN PLATELET VOLUME 9.6 fl (7.4-10.4); MONOCYTES % 9.1 % (2.0-8.0); NEUTROPHILS % 56.2 % (40.0-76.0); PLATELET 330 x1000/uL (130-400); RED BLOOD CELL COUNT 3.51 mill/uL (4.2-5.4); RED CELL DISTRIBUTION WIDTH 14.2 % (11.6-14.6)
[2019-03-16] MEDS ORDERED: NICARDIPINE 100 MG in SODIUM CHLORIDE 0.9% 60 ML IV PRN (07:45)
[2019-03-16 07:48] LABS: CHLORIDE 103 mEq/L (98-107)
[2019-03-16 08:05] LABS: CLARITY URINE TURBID (CLEAR); COLOR URINE YELLOW (YELLOW); KETONES URINE TRACE (NEGATIVE); LEUKOCYTE ESTERASE URINE 3+ (NEGATIVE); NITRITE URINE NEGATIVE (NEGATIVE); OCCULT BLOOD URINE 1+ (NEGATIVE); PROTEIN URINE 1+ (NEGATIVE); SPECIFIC GRAVITY URINE 1.024 (1.005-1.030); UROBILINOGEN URINE 0.2 E.U./dL (0.2-1.0)
[2019-03-16] MEDS ORDERED: HYDRALAZINE 20MG/ML VIAL ONE (08:06)
[2019-03-16] MEDS ORDERED: EPHEDRINE SULFATE 50MG/ML VIAL ONE (08:32)
[2019-03-16] MEDS ORDERED: NEOSTIGMINE METHYLSULFATE 1MG/ML 10 ML VIAL ONE (08:41)
[2019-03-16] MEDS ORDERED: GLYCOPYRROLATE 0.2 MG/ML 2ML VIAL ONE ×2 (08:42→08:45)
[2019-03-16] MEDS ORDERED: ENOXAPARIN 30MG/0.3ML SYR SUBCUT SCH (09:00)
[2019-03-16] MEDS ORDERED: PHENYLEPHRINE HCL 10 MG/ML 1ML (IV VIAL) IV ONE (09:35)
[2019-03-16] MEDS ORDERED: ONDANSETRON HCL 4MG/2ML INJ IV PRN (09:45)
[2019-03-16] MEDS ORDERED: LACTATED RINGERS 1,000 ML IV ONE ×2 (09:45→12:00)
[2019-03-16] MEDS ORDERED: FENTANYL CITRATE/PF 50MCG/ML 2ML VIAL IV PRN (09:45)
[2019-03-16 12:00] VITALS: BP 134/47
[2019-03-16] MEDS: DEXT 5%/LACTATED RINGERS 1,000 ML IV SCH (14:14)
[2019-03-16 16:00] VITALS: BP 126/46
[2019-03-16] MEDS: MORPHINE SULFATE 4 MG/ML CPJ (NOT FOR IM USE) IV PRN ×2 (18:41→22:34)
[2019-03-16 20:00] VITALS: BP 128/32
[2019-03-16] MEDS: VANCOMYCIN 1 G PREMIX 200 ML IV SCH (21:08)
[2019-03-17] VITALS: BP 106/40
[2019-03-17] MEDS ORDERED: LACTATED RINGERS 1,000 ML IV SCH
[2019-03-17] MEDS: PIPERACILLIN/TAZ 2.25G PREMIX 50 ML IV SCH ×4 (00:12→18:27)
[2019-03-17] MEDS: MORPHINE SULFATE 4 MG/ML CPJ (NOT FOR IM USE) IV PRN ×4 (03:49→20:58)
[2019-03-17] MEDS: BLOOD SUGAR DIAGNOSTIC STRIP TEST SCH ×4 (06:47→21:00)
[2019-03-17] MEDS: INSULIN LISPRO 100 UNITS/ML SUBCUT SCH ×4 (06:47→23:40)
[2019-03-17 08:00] VITALS: BP 122/46
[2019-03-17 12:00] VITALS: BP 135/36
[2019-03-17] MEDS: VANCOMYCIN 1 G PREMIX 200 ML IV SCH (13:42)
[2019-03-17] MEDS: FLUCONAZOLE 100MG TABLET PO SCH (13:42)
[2019-03-17 16:00] VITALS: BP 132/46
[2019-03-17] MEDS: DEXT 5%/LACTATED RINGERS 1,000 ML IV SCH ×2 (16:22→17:20)
[2019-03-17 20:00] VITALS: BP 137/45
[2019-03-17] MEDS: ENOXAPARIN 40MG/0.4ML SYR SUBCUT SCH (23:40)
[2019-03-18] VITALS: BP 106/27
[2019-03-18] MEDS: MEROPENEM 500 MG in SODIUM CHLORIDE 0.9% 50 ML IV SCH ×4 (03:33→21:14)
[2019-03-18 04:00] VITALS: BP 138/41
[2019-03-18] MEDS: VANCOMYCIN 1 G PREMIX 200 ML IV SCH ×2 (05:36→23:48)
[2019-03-18] MEDS: DEXT 5%/LACTATED RINGERS 1,000 ML IV SCH ×3 (05:41→20:56)
[2019-03-18] MEDS: MORPHINE SULFATE 4 MG/ML CPJ (NOT FOR IM USE) IV PRN ×4 (06:03→20:23)
[2019-03-18] MEDS: INSULIN LISPRO 100 UNITS/ML SUBCUT SCH ×4 (06:29→20:57)
[2019-03-18] MEDS: BLOOD SUGAR DIAGNOSTIC STRIP TEST SCH ×4 (07:10→20:50)
[2019-03-18 08:00] VITALS: BP 149/33
[2019-03-18] MEDS: FLUCONAZOLE 100MG TABLET PO SCH (09:41)
[2019-03-18 12:00] VITALS: BP 143/53
[2019-03-18 16:00] VITALS: BP 151/54
[2019-03-18 20:00] VITALS: BP 140/46
[2019-03-18] MEDS: ENOXAPARIN 40MG/0.4ML SYR SUBCUT SCH (20:57)
[2019-03-19] MEDS: MORPHINE SULFATE 4 MG/ML CPJ (NOT FOR IM USE) IV PRN ×3 (00:38→21:16)
[2019-03-19 01:23] VITALS: BP 111/30
[2019-03-19 04:00] VITALS: BP 148/43
[2019-03-19] MEDS: MEROPENEM 500 MG in SODIUM CHLORIDE 0.9% 50 ML IV SCH ×3 (05:46→21:18)
[2019-03-19] MEDS: DEXT 5%/LACTATED RINGERS 1,000 ML IV SCH ×3 (06:13→22:48)
[2019-03-19] MEDS: BLOOD SUGAR DIAGNOSTIC STRIP TEST SCH ×4 (06:26→21:00)
[2019-03-19] MEDS: INSULIN LISPRO 100 UNITS/ML SUBCUT SCH ×4 (06:34→22:29)
[2019-03-19 08:06] VITALS: BP 96/45
[2019-03-19] MEDS: FLUCONAZOLE 100MG TABLET PO SCH (09:26)
[2019-03-19] MEDS: VANCOMYCIN 750 MG PREMIX 150 ML IV SCH (11:52)
[2019-03-19 12:04] VITALS: BP 109/71
[2019-03-19 16:00] VITALS: BP 169/57
[2019-03-19 20:00] VITALS: BP 134/35
[2019-03-19] MEDS: ENOXAPARIN 40MG/0.4ML SYR SUBCUT SCH (21:17)
[2019-03-20] VITALS: BP 143/60
[2019-03-20] MEDS: VANCOMYCIN 750 MG PREMIX 150 ML IV SCH (03:48)
[2019-03-20 04:00] VITALS: BP 146/45
[2019-03-20] MEDS: MEROPENEM 500 MG in SODIUM CHLORIDE 0.9% 50 ML IV SCH ×3 (06:09→21:24)
[2019-03-20] MEDS: DEXT 5%/LACTATED RINGERS 1,000 ML IV SCH (06:58)
[2019-03-20] MEDS: INSULIN LISPRO 100 UNITS/ML SUBCUT SCH ×4 (07:02→21:28)
[2019-03-20] MEDS: BLOOD SUGAR DIAGNOSTIC STRIP TEST SCH ×4 (07:03→21:35)
[2019-03-20 08:00] VITALS: BP 154/42
[2019-03-20] MEDS: FLUCONAZOLE 100MG TABLET PO SCH (08:45)
[2019-03-20 12:00] VITALS: BP 151/49
[2019-03-20 16:00] VITALS: BP 138/50
[2019-03-20] MEDS ORDERED: VANCOMYCIN 750 MG PREMIX 150 ML IV SCH (18:00)
[2019-03-20] MEDS: MORPHINE SULFATE 4 MG/ML CPJ (NOT FOR IM USE) IV PRN ×2 (18:44→23:32)
[2019-03-20 20:00] VITALS: BP 153/56
[2019-03-20] MEDS: ENOXAPARIN 40MG/0.4ML SYR SUBCUT SCH (21:25)
[2019-03-21] VITALS: BP 118/50
[2019-03-21] MEDS: DEXT 5%/LACTATED RINGERS 1,000 ML IV SCH ×3 (01:41→22:25)
[2019-03-21 04:00] VITALS: BP 132/69
[2019-03-21] MEDS: MEROPENEM 500 MG in SODIUM CHLORIDE 0.9% 50 ML IV SCH ×3 (05:28→22:07)
[2019-03-21] MEDS: BLOOD SUGAR DIAGNOSTIC STRIP TEST SCH ×4 (05:58→21:59)
[2019-03-21] MEDS: INSULIN LISPRO 100 UNITS/ML SUBCUT SCH ×4 (06:42→22:06)
[2019-03-21 07:13] LABS: BASOPHILS % 0.6 % (0.0-2.0); EOSINOPHILS % 3.5 % (0.0-5.0); HEMATOCRIT. 29.6 % (36.0-48.0); HEMOGLOBIN. 9.6 g/dL (12.0-16.0); LYMPHOCYTES % 23.7 % (20.0-50.0); MEAN CORPUSCULAR HEMOGLOBIN 29.4 pg (28.0-32.0); MEAN CORPUSCULAR VOLUME 90.2 fL (81.0-99.0); MEAN PLATELET VOLUME 9.2 fl (7.4-10.4); MONOCYTES % 12.6 % (2.0-8.0); NEUTROPHILS % 59.6 % (40.0-76.0); PLATELET 204 x1000/uL (130-400); RED BLOOD CELL COUNT 3.28 mill/uL (4.2-5.4); RED CELL DISTRIBUTION WIDTH 13.7 % (11.6-14.6)
[2019-03-21 07:51] LABS: CHLORIDE 102 mEq/L (98-107)
[2019-03-21 07:58] LABS: VANCOMYCIN TROUGH 20.6 ug/mL (5.0-10.0)
[2019-03-21 08:00] VITALS: BP 156/51
[2019-03-21] MEDS: FLUCONAZOLE 100MG TABLET PO SCH (09:00)
[2019-03-21] MEDS: HYDROCODONE/ACETAMINOPHEN 10/325MG TABLET PO PRN ×2 (09:11→17:45)
[2019-03-21 12:00] VITALS: BP 140/47
[2019-03-21] MEDS ORDERED: VANCOMYCIN 1 G PREMIX 200 ML IV SCH (13:00)
[2019-03-21 16:00] VITALS: BP 146/51
[2019-03-21 20:00] VITALS: BP 117/35
[2019-03-21] MEDS: ENOXAPARIN 40MG/0.4ML SYR SUBCUT SCH (22:08)
[2019-03-22] VITALS: BP 110/32
[2019-03-22 04:00] VITALS: BP 146/54
[2019-03-22] MEDS: BLOOD SUGAR DIAGNOSTIC STRIP TEST SCH ×4 (06:20→20:51)
[2019-03-22] MEDS: MEROPENEM 500 MG in SODIUM CHLORIDE 0.9% 50 ML IV SCH ×3 (06:33→21:51)
[2019-03-22] MEDS: DEXT 5%/LACTATED RINGERS 1,000 ML IV SCH ×4 (06:34→23:59)
[2019-03-22] MEDS: INSULIN LISPRO 100 UNITS/ML SUBCUT SCH ×4 (06:41→20:51)
[2019-03-22 08:00] VITALS: BP 150/52
[2019-03-22] MEDS: DOCUSATE SODIUM 100MG CAPSULE PO PRN (09:47)
[2019-03-22] MEDS: FLUCONAZOLE 100MG TABLET PO SCH (09:47)
[2019-03-22 12:00] VITALS: BP 150/53
[2019-03-22] MEDS: HYDROCODONE/ACETAMINOPHEN 10/325MG TABLET PO PRN ×2 (14:11→20:51)
[2019-03-22 16:00] VITALS: BP 128/58
[2019-03-22 20:00] VITALS: BP 146/31
[2019-03-22] MEDS: ENOXAPARIN 40MG/0.4ML SYR SUBCUT SCH (20:50)
[2019-03-23] VITALS: BP 122/47
[2019-03-23] MEDS: HYDROCODONE/ACETAMINOPHEN 10/325MG TABLET PO PRN ×4 (01:09→21:00)
[2019-03-23 04:00] VITALS: BP 109/37
[2019-03-23] MEDS: MEROPENEM 500 MG in SODIUM CHLORIDE 0.9% 50 ML IV SCH ×3 (05:09→21:25)
[2019-03-23] MEDS: BLOOD SUGAR DIAGNOSTIC STRIP TEST SCH ×4 (06:11→21:28)
[2019-03-23] MEDS: INSULIN LISPRO 100 UNITS/ML SUBCUT SCH ×4 (06:29→21:32)
[2019-03-23 08:00] VITALS: BP 119/29
[2019-03-23] MEDS: FLUCONAZOLE 100MG TABLET PO SCH (08:50)
[2019-03-23 12:00] VITALS: BP 163/57
[2019-03-23] MEDS: CLONIDINE 0.1MG TABLET PO PRN (12:20)
[2019-03-23] MEDS: DEXT 5%/LACTATED RINGERS 1,000 ML IV SCH ×2 (12:32→20:53)
[2019-03-23 16:00] VITALS: BP 123/30
[2019-03-23 20:00] VITALS: BP 142/30
[2019-03-23] MEDS: ENOXAPARIN 40MG/0.4ML SYR SUBCUT SCH (21:01)
[2019-03-24] VITALS (7 sets, daily range): BP systolic 126–168; BP diastolic 36–73
[2019-03-24] MEDS: DEXT 5%/LACTATED RINGERS 1,000 ML IV SCH ×3 (05:04→13:09)
[2019-03-24] MEDS: BLOOD SUGAR DIAGNOSTIC STRIP TEST SCH ×3 (06:18→16:42)
[2019-03-24] MEDS: MEROPENEM 500 MG in SODIUM CHLORIDE 0.9% 50 ML IV SCH ×2 (06:18→14:26)
[2019-03-24] MEDS: INSULIN LISPRO 100 UNITS/ML SUBCUT SCH ×3 (06:29→16:42)
[2019-03-24] MEDS: FLUCONAZOLE 100MG TABLET PO SCH (08:57)
[2019-03-24] MEDS: CLONIDINE 0.1MG TABLET PO PRN ×2 (08:57→16:38)
[2019-03-24] MEDS: HYDROCODONE/ACETAMINOPHEN 10/325MG TABLET PO PRN ×2 (08:57→18:43)
[2019-03-24] MEDS: DOCUSATE SODIUM 100MG CAPSULE PO PRN (09:00)
[2019-03-24] MEDS ORDERED: ENOXAPARIN 30MG/0.3ML SYR SUBCUT SCH (21:00)
== END 2019-03-24 20:12 | DRG 793 ==
LOC: ER 10:16 → EDBEDREQ 12:03 → EDBEDREQTM 12:03 → CANRESERV 12:19 → 5WST 14:00 → CANRESERV 14:16 → ENRESERV 14:16
PROVIDERS: ADMIT Hospitalist; ATTEND Hospitalist
PROC: 02H633Z Insertion of Infusion Device into Right Atrium, Percutaneous Approach (ICD-10-PCS; 2019-03-15)
PROC: B244ZZZ Ultrasonography of Right Heart (ICD-10-PCS; 2019-03-15)
PROC: 009U00Z Drainage of Spinal Canal with Drainage Device, Open Approach (ICD-10-PCS; principal; 2019-03-18)
PROC: 0JB70ZZ Excision of Back Subcutaneous Tissue and Fascia, Open Approach (ICD-10-PCS; 2019-03-18)
DX: T81.31XA Disruption of external operation (surgical) wound, not elsewhere classified, initial encounter (principal); G06.1 Intraspinal abscess and granuloma; E44.0 Moderate protein-calorie malnutrition; E11.51 Type 2 diabetes mellitus with diabetic peripheral angiopathy without gangrene; I27.20 Pulmonary hypertension, unspecified; Z68.41 Body mass index [BMI] 40.0-44.9, adult; I11.0 Hypertensive heart disease with heart failure; I50.20 Unspecified systolic (congestive) heart failure; G82.20 Paraplegia, unspecified; T81.49XA Infection following a procedure, other surgical site, initial encounter; E78.5 Hyperlipidemia, unspecified; I25.10 Atherosclerotic heart disease of native coronary artery without angina pectoris; H40.9 Unspecified glaucoma; N39.0 Urinary tract infection, site not specified; B96.20 Unspecified Escherichia coli [E. coli] as the cause of diseases classified elsewhere; E78.00 Pure hypercholesterolemia, unspecified; F41.9 Anxiety disorder, unspecified; D64.9 Anemia, unspecified; I50.22 Chronic systolic (congestive) heart failure; M19.90 Unspecified osteoarthritis, unspecified site; M48.061 Spinal stenosis, lumbar region without neurogenic claudication; Z98.1 Arthrodesis status; Z89.511 Acquired absence of right leg below knee; I25.2 Old myocardial infarction; Z90.49 Acquired absence of other specified parts of digestive tract; Z95.1 Presence of aortocoronary bypass graft; Z89.521 Acquired absence of right knee
CPT/HCPCS: 36415; 36569; 51702; 71045; 72100; 72158; 76000; 76937; 80048; 80202; 82962; 83605; 83880; 84145; 84484; 85651; 87070; 87075; 87077; 87106; 87186; 93005; 93970; 93971; 95925; 95926; 95928; 95929; 96365; 96368; 97162; 97166; 99285; A9577; C1725; C1769; C1887; J0360; J1170; J1650; J1815; J2185; J2250; J2270; J2370; J2543; J2704; J2710; J3010; J3370; J3490; J7030; J7050; J7120; J7121

== ENCOUNTER 2020-01-14 22:31 | Inpatient (IN) | payer MEDICAID ==
[~2020-01-14] VITALS: Ht 157.5 cm; Wt 89.4 kg
[~2020-01-14 22:31] MED LIST changes: -ACET-2178 PO; -ALEN70TA46 PO; +ALEN70TA68 PO; -ASPI-1159 PO; +ASPI-1497 PO; +TOPUD PO
[2020-01-14 23:34] LABS: BASOPHILS % 0.4 % (0.0-2.0); EOSINOPHILS % 0.5 % (0.0-5.0); HEMATOCRIT. 30.6 % (36.0-48.0); HEMOGLOBIN. 10.3 g/dL (12.0-16.0); MEAN CORPUSCULAR HEMOGLOBIN 31.6 pg (28.0-32.0); MEAN CORPUSCULAR VOLUME 93.7 fL (81.0-99.0); MEAN PLATELET VOLUME 9.8 fl (7.4-10.4); MONOCYTES % 7.5 % (2.0-8.0); NEUTROPHILS % 79.6 % (40.0-76.0); PLATELET 208 x1000/uL (130-400); RED BLOOD CELL COUNT 3.27 mill/uL (4.2-5.4); RED CELL DISTRIBUTION WIDTH 14.3 % (11.6-14.6)
[2020-01-14 23:39] LABS: CHLORIDE 99 mEq/L (98-107)
[2020-01-14 23:41] LABS: PROTHROMBIN TIME 10.4 sec (9.6-11.0)
[2020-01-15] MEDS ORDERED: DEXT 5%/0.45% NACL KCL 20MEQ/L 1,000 ML IV ONE (00:12)
[2020-01-15 00:13] LABS: CLARITY URINE CLEAR (CLEAR); COLOR URINE YELLOW (YELLOW); KETONES URINE NEGATIVE (NEGATIVE); LEUKOCYTE ESTERASE URINE 2+ (NEGATIVE); NITRITE URINE POSITIVE (NEGATIVE); OCCULT BLOOD URINE NEGATIVE (NEGATIVE); PH URINE 5.5 (4.5-8.0); PROTEIN URINE NEGATIVE (NEGATIVE); SPECIFIC GRAVITY URINE 1.009 (1.005-1.030); UROBILINOGEN URINE 0.2 E.U./dL (0.2-1.0)
[2020-01-15] MEDS ORDERED: DEXTROSE 50% WATER 50ML SYRINGE IV ONE ×3 (00:15→05:45)
[2020-01-15] MEDS ORDERED: SODIUM CHLORIDE 0.9% 1,000 ML IV ONE (00:20)
[2020-01-15] MEDS ORDERED: CEFTRIAXONE 1 G PREMIX 50 ML IV SCH ×2 (01:00→07:00)
[2020-01-15] MEDS ORDERED: DEXT 10% WATER 1,000 ML IV ONE (05:39)
[2020-01-15 06:25] LABS: BASOPHILS % 0.5 % (0.0-2.0); EOSINOPHILS % 0.9 % (0.0-5.0); HEMATOCRIT. 29.9 % (36.0-48.0); LYMPHOCYTES % 21.9 % (20.0-50.0); MEAN CORPUSCULAR HEMOGLOBIN 31.4 pg (28.0-32.0); MEAN PLATELET VOLUME 10.1 fl (7.4-10.4); MONOCYTES % 11.1 % (2.0-8.0); NEUTROPHILS % 65.6 % (40.0-76.0); PLATELET 193 x1000/uL (130-400); RED BLOOD CELL COUNT 3.18 mill/uL (4.2-5.4); RED CELL DISTRIBUTION WIDTH 14.1 % (11.6-14.6)
[2020-01-15] MEDS: DEXTROSE 5% WATER 1,000 ML IV SCH ×2 (06:54→16:01)
[2020-01-15] MEDS ORDERED: ACETAMINOPHEN 325MG TABLET PO PRN (07:00)
[2020-01-15] MEDS ORDERED: ENOXAPARIN 40MG/0.4ML SYR SUBCUT SCH (07:00)
[2020-01-15] MEDS ORDERED: DEXTROSE 50% WATER 50ML SYRINGE IV PRN (07:00)
[2020-01-15] MEDS ORDERED: IPRATROPIUM/ALBUTEROL 0.5-3(2.5)MG/3ML NEB HHN PRN (07:00)
[2020-01-15] MEDS ORDERED: CLONIDINE 0.1MG TABLET PO PRN (07:00)
[2020-01-15] MEDS ORDERED: MAGNESIUM/ALUMINUM HYDROXIDE/SIMETHICONE 30ML UDC PO PRN (07:00)
[2020-01-15] MEDS ORDERED: ONDANSETRON HCL 4MG/2ML INJ IV PRN (07:00)
[2020-01-15 20:59] VITALS: BP 124/55
[2020-01-15 22:01] VITALS: BP 114/52
[2020-01-16] VITALS (12 sets, daily range): BP systolic 110–145; BP diastolic 32–75
[2020-01-16] MEDS: HYDROCODONE/ACETAMINOPHEN 5/325MG TABLET PO PRN ×3 (00:10→18:24)
[2020-01-16] MEDS: CEFTRIAXONE 1 G PREMIX 50 ML IV SCH (04:51)
[2020-01-16 06:23] LABS: BASOPHILS % 0.6 % (0.0-2.0); EOSINOPHILS % 2.2 % (0.0-5.0); HEMATOCRIT. 27.2 % (36.0-48.0); HEMOGLOBIN. 9.2 g/dL (12.0-16.0); MEAN CORPUSCULAR HEMOGLOBIN 31.2 pg (28.0-32.0); MEAN CORPUSCULAR VOLUME 92.5 fL (81.0-99.0); MONOCYTES % 11.5 % (2.0-8.0); NEUTROPHILS % 50.7 % (40.0-76.0); PLATELET 177 x1000/uL (130-400); RED BLOOD CELL COUNT 2.94 mill/uL (4.2-5.4); RED CELL DISTRIBUTION WIDTH 14.2 % (11.6-14.6)
[2020-01-16 06:57] LABS: CHLORIDE 101 mEq/L (98-107)
[2020-01-16 07:08] LABS: PHOSPHORUS 2.7 mg/dL (2.5-4.9)
[2020-01-16] MEDS: ENOXAPARIN 30MG/0.3ML SYR SUBCUT SCH ×2 (09:59→21:01)
[2020-01-16] MEDS ORDERED: DEXTROSE 50% WATER 50ML SYRINGE IV PRN (11:15)
[2020-01-16] MEDS: BLOOD SUGAR DIAGNOSTIC STRIP TEST SCH ×3 (12:59→20:41)
[2020-01-16] MEDS ORDERED: MAGNESIUM 2 G PREMIX 50 ML IV NR (13:00)
[2020-01-16] MEDS: DEXTROSE 5% WATER 1,000 ML IV SCH (21:02)
[2020-01-17] VITALS (11 sets, daily range): BP systolic 123–155; BP diastolic 41–85
[2020-01-17] MEDS: CEFTRIAXONE 1 G PREMIX 50 ML IV SCH (02:19)
[2020-01-17] MEDS: HYDROCODONE/ACETAMINOPHEN 5/325MG TABLET PO PRN (04:57)
[2020-01-17 07:17] LABS: BASOPHILS % 0.7 % (0.0-2.0); EOSINOPHILS % 2.1 % (0.0-5.0); HEMOGLOBIN. 8.8 g/dL (12.0-16.0); LYMPHOCYTES % 30.8 % (20.0-50.0); MEAN CORPUSCULAR HEMOGLOBIN 31.5 pg (28.0-32.0); MEAN CORPUSCULAR VOLUME 92.7 fL (81.0-99.0); MEAN PLATELET VOLUME 10.4 fl (7.4-10.4); MONOCYTES % 14.4 % (2.0-8.0); PLATELET 157 x1000/uL (130-400); RED CELL DISTRIBUTION WIDTH 13.8 % (11.6-14.6)
[2020-01-17] MEDS: BLOOD SUGAR DIAGNOSTIC STRIP TEST SCH ×4 (07:23→21:01)
[2020-01-17 07:34] LABS: CHLORIDE 98 mEq/L (98-107)
[2020-01-17] MEDS: ENOXAPARIN 30MG/0.3ML SYR SUBCUT SCH (08:21)
[2020-01-17] MEDS ORDERED: DEXTROSE 50% WATER 50ML SYRINGE IV PRN (11:15)
[2020-01-17] MEDS ORDERED: KETOROLAC 30MG/ML VIAL IV NR (11:30)
[2020-01-17] MEDS: INSULIN LISPRO 100 UNITS/ML SUBCUT SCH ×3 (13:47→21:01)
[2020-01-18] VITALS (7 sets, daily range): BP systolic 102–149; BP diastolic 42–90
[2020-01-18] MEDS ORDERED: CEFTRIAXONE 1,000 MG in DEXTROSE 5% WATER 50 ML IV SCH (06:00)
[2020-01-18 07:02] LABS: BASOPHILS % 0.3 % (0.0-2.0); EOSINOPHILS % 2.3 % (0.0-5.0); HEMATOCRIT. 26.3 % (36.0-48.0); HEMOGLOBIN. 8.8 g/dL (12.0-16.0); LYMPHOCYTES % 32.6 % (20.0-50.0); MEAN CORPUSCULAR VOLUME 93.1 fL (81.0-99.0); MEAN PLATELET VOLUME 10.1 fl (7.4-10.4); MONOCYTES % 13.6 % (2.0-8.0); NEUTROPHILS % 51.2 % (40.0-76.0); PLATELET 167 x1000/uL (130-400); RED BLOOD CELL COUNT 2.83 mill/uL (4.2-5.4)
[2020-01-18] MEDS: BLOOD SUGAR DIAGNOSTIC STRIP TEST SCH ×2 (07:30→12:16)
[2020-01-18] MEDS: INSULIN LISPRO 100 UNITS/ML SUBCUT SCH ×2 (08:00→14:03)
[2020-01-18] MEDS ORDERED: METF-415 MT (08:44)
[2020-01-18] MEDS ORDERED: ENOXAPARIN 40MG/0.4ML SYR SUBCUT SCH (09:00)
== END 2020-01-18 18:15 | disposition home or self-care (01) | DRG 420 ==
LOC: ER 22:31 → 5EST 01-15 01:04 → EDBEDREQSVC 01-15 01:06 → EDBEDREQ 01-15 01:06 → EDBEDREQDT 01-15 01:06 → EDBEDREQTM 01-15 01:06 → ENRESERV 01-15 19:09
PROVIDERS: ADMIT Internal Medicine; ATTEND Internal Medicine
DX: E11.649 Type 2 diabetes mellitus with hypoglycemia without coma (principal); E46 Unspecified protein-calorie malnutrition; E83.42 Hypomagnesemia; I50.9 Heart failure, unspecified; I11.0 Hypertensive heart disease with heart failure; N39.0 Urinary tract infection, site not specified; E78.00 Pure hypercholesterolemia, unspecified; H40.9 Unspecified glaucoma; F32.9 Major depressive disorder, single episode, unspecified; F41.9 Anxiety disorder, unspecified; S51.811A Laceration without foreign body of right forearm, initial encounter; X58.XXXA Exposure to other specified factors, initial encounter; M17.12 Unilateral primary osteoarthritis, left knee; E78.5 Hyperlipidemia, unspecified; I25.2 Old myocardial infarction; Z89.511 Acquired absence of right leg below knee; Z79.82 Long term (current) use of aspirin; Z79.84 Long term (current) use of oral hypoglycemic drugs; Z79.899 Other long term (current) drug therapy; Z90.49 Acquired absence of other specified parts of digestive tract; Z95.1 Presence of aortocoronary bypass graft; Y93.89 Activity, other specified; Y92.89 Other specified places as the place of occurrence of the external cause; Y99.8 Other external cause status; Z68.36 Body mass index [BMI] 36.0-36.9, adult; Z91.14 Patient's other noncompliance with medication regimen
CPT/HCPCS: 36415; 71045; 73564; 80048; 80053; 80076; 81003; 82140; 82962; 83036; 83735; 84100; 84443; 85025; 87077; 87186; 93005; 96365; 97162; 99291; J0696; J1650; J1815; J1885; J3475; J7060

== ENCOUNTER 2020-04-13 14:10 | Emergency (ER) | payer MEDICAID ==
[~2020-04-13] VITALS: Ht 152.4 cm; Wt 66.0 kg
[~2020-04-13 14:10] MED LIST changes: +METF-415 MT; -METF-416 PO; -PIOG45TA5 PO
[2020-04-13] MEDS ORDERED: BACITRACIN ZINC OINT UDPKT TOP ONE (16:00)
[2020-04-13] MEDS ORDERED: ACETAMINOPHEN 325MG TABLET PO ONE (16:00)
[2020-04-13] MEDS ORDERED: LIDOCAINE HCL/PF 1% 10 MG/ML 5ML VIAL IJ ONE (16:00)
[2020-04-13 17:22] VITALS: BP 154/74
== END 2020-04-13 17:28 | disposition home or self-care (01) ==
LOC: ER 14:10
DX: L60.0 Ingrowing nail (principal); I11.0 Hypertensive heart disease with heart failure; I50.9 Heart failure, unspecified; I25.2 Old myocardial infarction; E78.00 Pure hypercholesterolemia, unspecified; Z79.899 Other long term (current) drug therapy; Z79.82 Long term (current) use of aspirin; Z98.890 Other specified postprocedural states; Z90.710 Acquired absence of both cervix and uterus
CPT/HCPCS: 99283; J3490